=== PATIENT | female | born 1950 | race Caucasian/White ===

== ENCOUNTER 2018-05-17 19:22 | Emergency (ER) | payer OTHER ==
[~2018-05-17] VITALS: Ht 157.5 cm; Wt 91.2 kg
[~2018-05-17 19:22] MED LIST: ASPIR 8181 MG PO; ATORVASTATIN CA40 MG PO; BENTYL 20 MG TA20 M1 PO; BUPROPION XL300 MG PO; BUSPAR30 MG PO; COUMADIN 5 MG TA5 M1; COUMADIN7.5 MG PO; COZAAR 50 MG TA50 M2 PO; EXELON1 EAC1 TD; GLUCOPHAGE500 MG PO; LEVAQUIN 500 M500 M2 PO; MEDROLDOSEPACK PO; MOBIC15 MG PO; MULTI VITAMIN1 EACH PO; NEURONTIN800 MG PO; NORVASC5 MG PO; NOVOLOG100 UNIT/1 SUBQ; OMEPRAZOLE 20 M20 M1 PO; ONGLYZA5 MG PO; ORPHENADRINE C100 M2 PO; OXYBUTYNIN 5 MG5 M1 PO; PROZAC 20 MG20 MG PO; PROZAC40 MG PO; RITALIN20 MG PO; SIMVASTATIN80 MG PO; T:SLIM1 EAC1 SQ; XANAX 0.25 MG0.25 MG PO
[2018-05-17] MEDS ORDERED: WELLBUTRIN SR100 MG PO (19:42)
[2018-05-17] MEDS ORDERED: CELEBREX 200 M200 M1 PO (19:42)
[2018-05-17] MEDS ORDERED: EFFEXOR XR150 MG PO (19:43)
[2018-05-17] MEDS ORDERED: NORCO 5-325 TA1 EACH PO (20:29)
[2018-05-17] MEDS ORDERED: ROBAXIN 750 MG750 M1 PO ×2 (20:29→21:17)
[2018-05-17] MEDS ORDERED: MEDROLDOSEPACK PO (21:17)
[2018-05-17 21:53] VITALS: BP 148/50
== END 2018-05-17 21:53 | disposition home or self-care (01) ==
LOC: M.ERS 19:22
DX: M54.2 Cervicalgia (principal); M25.511 Pain in right shoulder; M54.6 Pain in thoracic spine; E11.9 Type 2 diabetes mellitus without complications; E78.00 Pure hypercholesterolemia, unspecified; K21.9 Gastro-esophageal reflux disease without esophagitis; M19.90 Unspecified osteoarthritis, unspecified site; Z88.1 Allergy status to other antibiotic agents; Z91.041 Radiographic dye allergy status; Z88.7 Allergy status to serum and vaccine; Z88.8 Allergy status to other drugs, medicaments and biological substances; Z98.890 Other specified postprocedural states; Z90.49 Acquired absence of other specified parts of digestive tract; Z90.710 Acquired absence of both cervix and uterus; Z79.4 Long term (current) use of insulin